=== PATIENT | female | born 1975 | race Caucasian/White ===

== ENCOUNTER 2016-12-11 17:39 | Emergency (ER) | payer OTHER ==
[~2016-12-11] VITALS: Ht 160 cm; Wt 56.7 kg
--- NOTE | 2016-12-11 18:23 | Emergency Room Report ---
History of Present Illness General Chief Complaint: Complications Present Illness HPI 41 YO Female presents to the ED C/O moderate vaginal bleeding with cramping since this am. pt. states she is approximately 12 weeks and when she had routine US Performed on Monday she was told there is nonviable fetus and to anticipate miscarriage by her nurse mixed crop farmer. Patient states she is not currently have an LICENSING WORKER and she had no symptoms until today when she had sudden onset cramping and moderate vaginal bleeding dark red blood with the passage of clots. pt reports current pain is 3/10 in severity and described as uterine cramping. Patient's nurse mixed crop farmer told patient that she should be evaluated by emergency department for moderate amount of blood loss patient reports intermittent dizziness. Patient is with one prior miscarriage and one prior . She states she is currently breast-feeding. Patient denies fevers or chills. She denies trauma. pt. reports uterine tenderness. Denies CP, Palpitations, LOC, AMS, dizziness, Changes in Vision, Sensation, paresthesias, or a sudden severe headache. Allergies: Coded Allergies: ERYTHROMYCIN BASE (Verified Allergy, Unknown, 12/11/16) TETRACYCLINE (Verified Allergy, Unknown, 12/11/16) Patient History Past Medical History: see triage record Past Surgical History: none Pertinent Family History: none Last Menstrual Period: 3-21 Now: Yes - 12 weeks : 4 Para: 1 Reviewed Nursing Documentation: PMH: Agreed, PSxH: Agreed Review of Systems All Other Systems: negative except mentioned in HPI Physical Exam Vital Signs Date Time Temp Pulse Resp B/P Pulse Ox O2 Delivery O2 Flow Rate FiO2 12/11/16 17:29 98.1 88 16 137/72 98 Room Air Sp02 EP Interpretation: reviewed, normal General Appearance: no apparent distress, alert, GCS 15, non-toxic Head: normocephalic, atraumatic Eyes: bilateral eye PERRL, bilateral eye normal inspection ENT: hearing grossly normal, normal pharynx, no angioedema, normal voice Neck: full range of motion, supple/symm/no masses Respiratory: chest non-tender, lungs clear, normal breath sounds, speaking full sentences Cardiovascular #1: regular rate, rhythm, no edema Gastrointestinal: normal bowel sounds, soft, no guarding, no rebound, other - lower abdominal TTP to deep palpation uterine/bladder area, otherwise unremarkable no avidence of acute abdomen Rectal: deferred Genitourinary: normal inspection, no CVA tenderness, ext genitalia/vag normal, os closed, other - moderate bright red blood in the vaginal canal, no clots, os is closed. Musculoskeletal: back normal, gait/station normal, normal range of motion, non- tender Neurologic: alert, oriented x3, responsive, motor strength/tone normal, sensory intact, speech normal Psychiatric: judgement/insight normal, memory normal, mood/affect normal Skin: normal color, no rash, warm/dry, well hydrated Lymphatic: no adenopathy Medical Decision Making PA Attestation Dr. Young is my supervising Physician whom patient management has been discussed with. Diagnostic Impression: Primary Impression: Incomplete miscarriage ER Course 41 YO Female presents to the ED C/O moderate vaginal bleeding with cramping since this am. pt. states she is approximately 12 weeks and when she had routine US Performed on Monday she was told there is nonviable fetus and to anticipate miscarriage by her nurse mixed crop farmer. Patient states she is not currently have an LICENSING WORKER and she had no symptoms until today when she had sudden onset cramping and moderate vaginal bleeding dark red blood with the passage of clots. pt reports current pain is 3/10 in severity and described as uterine cramping. Patient's nurse mixed crop farmer told patient that she should be evaluated by emergency department for moderate amount of blood loss patient reports intermittent dizziness. Patient is with one prior miscarriage and one prior . She states she is currently breast-feeding. Patient denies fevers or chills. She denies trauma. pt. reports uterine tenderness. Ddx considered but are not limited to: Fibroid, ectopic , Fibroid, Spontaneous , incomplete miscarriage. Vital signs: are WNL, pt. is afebrile, non hypotensive, non-tachycardic. Pelvic Exam: bright red blood noted, os is closed no visible clots. H&PE are most consistent with: incomplete miscarriage ORDERS: -CBC: H&H WNL 13.1/38%, WBC's are mildly elevated at 13.1 but WNL for . -Urine hcg- Positive -serum Hcg Quant: 1495 - Blood/RH type and screen- see attached labs -Pelvic US complete- retained POC and uterine fibroid. ED INTERVENTIONS: -1 Liter NS Bolus -500mg Keflex PO OBGYN CONSULT: Dr. Estrada: spoke with on-call OBGYN who agreed to see the pt. in [facility], instructed me to rx Methergine 0.2mg PO Q6Hr # 6 in addition to Doxycycline BID x 7 days --- Pt. is currently Breast feeding Dr. Young suggested doxycycline be switched to Keflex. - Pt. states she does not want to stop Breast feeding, d/w pt. that I will provide her with rx for Methergine in case she changes her mind. instructed pt. to follow up tomorrow with Dr. Estrada's [place] office. and to take antibiotics in the meantime. DISCHARGE: At this time pt. is stable for d/c to home with close outpatient follow up with OBGYN. Will provide printed patient care instructions, and any necessary prescriptions. Care plan and follow up instructions have been discussed with the patient prior to discharge. Labs Test 12/11/16 18:20 12/11/16 18:26 White Blood Count 13.1 K/UL (4.8-10.8) Red Blood Count 4.26 M/UL (4.20-5.40) Hemoglobin 13.1 G/DL (12.0-16.0) Hematocrit 38.1 % (37.0-47.0) Mean Corpuscular Volume 89 FL (80-99) Mean Corpuscular Hemoglobin 30.6 PG (27.0-31.0) Mean Corpuscular Hemoglobin Concent 34.2 G/DL (32.0-36.0) Red Cell Distribution Width 11.2 % (11.6-14.8) Platelet Count 224 K/UL (150-450) Mean Platelet Volume 5.9 FL (6.5-10.1) Neutrophils (%) (Auto) 74.2 % (45.0-75.0) Lymphocytes (%) (Auto) 16.2 % (20.0-45.0) Monocytes (%) (Auto) 7.7 % (1.0-10.0) Eosinophils (%) (Auto) 1.2 % (0.0-3.0) Basophils (%) (Auto) 0.7 % (0.0-2.0) Human Chorionic Gonadotropin, Quant 1495 mIU/mL Urine HCG, Qualitative Positive Last Vital Signs Date Time Temp Pulse Resp B/P Pulse Ox O2 Delivery O2 Flow Rate FiO2 12/11/16 17:29 98.1 88 16 137/72 98 Room Air Disposition: HOME, SELF-CARE Condition: Stable Physician Consult: Dr. Natalie SANTANA Scripts Methylergonovine Maleate (METHYLERGONOVINE MALEATE) 0.2 Mg Tablet 0.2 MG ORAL Q6HR, #6 TAB Prov: Annie Bobo 12/11/16 Cephalexin* (KEFLEX*) 500 Mg Capsule 500 MG ORAL EVERY 12 HOURS for 7 Days, #14 CAP 0 Refills Prov: Annie Bobo 12/11/16 Referrals: MORENO ESTRADA Patient Instructions: Incomplete Miscarriage Additional Instructions: Take medications as directed. Do not drink breast feed while taking Methergine and for 12 hours after last dose. Follow up with Dr. Natalie SANTANA at the [facility] Return sooner to ED if new symptoms occur, or current symptoms become worse. - Please note that this Emergency Department Report was dictated using [employer]joinery setter out technology software, occasionally this can lead to erroneous entry secondary to interpretation by the dictation equipment. Annie Bobo Dec 11, 2016 18:23
[2016-12-11 18:50] LABS: BASOPHILS % (AUTO) 0.7 % (0.0-2.0); EOSINOPHILS % (AUTO) 1.2 % (0.0-3.0); LYMPHOCYTES % (AUTO) 16.2 % (20.0-45.0); MEAN CORPUSCULAR HEMOGLOBIN 30.6 PG (27.0-31.0); MEAN CORPUSCULAR HGB CONC 34.2 G/DL (32.0-36.0); MEAN CORPUSCULAR VOLUME 89 FL (80-99); MEAN PLATELET VOLUME 5.9 FL (6.5-10.1); MONOCYTES % (AUTO) 7.7 % (1.0-10.0); NEUTROPHILS % (AUTO) 74.2 % (45.0-75.0); PLATELET COUNT 224 K/UL (150-450); RED BLOOD COUNT 4.26 M/UL (4.20-5.40); RED CELL DISTRIBUTION WIDTH 11.2 % (11.6-14.8); WHITE BLOOD COUNT 13.1 K/UL (4.8-10.8)
[2016-12-11] MEDS ORDERED: CEPHALEXIN500 MG ORAL (20:42)
[2016-12-11] MEDS ORDERED: METHYLERGONOVI0.2 MG ORAL (20:42)
[2016-12-11] MEDS ORDERED: Cephalexin 500mg cap ORAL ONE (21:00)
[2016-12-11 21:22] VITALS: BP 104/68
--- NOTE | 2016-12-12 12:25 | Diagnostic Imaging Report ---
Indications: Patient states positive test November 24, now presents with vaginal bleeding, LMP 09/13/16 Technique: Transabdominal and transvaginal real-time grayscale and duplex Doppler imaging of the pelvis was performed. Findings: Comparison: None Uterus measures 12.4 x 9 x 8.6cm. It demonstrates a 3.3 cm solid heterogeneous mass in its anterior myometrium, somewhat hypervascular on color Doppler imaging.. The endometrial complex measures approximately 18 mm in diameter. It contains an irregular saclike structure with internal echogenicity, possible small yolk sac. No discernible pole or cardiac activity.Endocervical canal is dilated and filled with heterogeneous material. No Free fluid is present in the cul-de-sac. Right ovary measures 3.5 x 3.4 x 1.5 cm. It is unremarkable in appearance. Duplex Doppler imaging demonstrates normal blood flow. No extra-ovarian abnormality is seen. Left ovary measures 3.4 x 3.2 x 1.9 cm. It is unremarkable in appearance. Duplex Doppler imaging demonstrates normal blood flow. No extra-ovarian abnormality is seen. IMPRESSION: Findings compatible with nonviable intrauterine with retained products of conception Uterine fibroid Adnexa unremarkable
== END 2016-12-11 21:33 | disposition home or self-care (01) ==
LOC: EDBD 17:39 → EMR 18:47
DX: O03.4 Incomplete spontaneous abortion without complication (principal); O34.11 Maternal care for benign tumor of corpus uteri, first trimester; D25.9 Leiomyoma of uterus, unspecified; Z3A.12 12 weeks gestation of pregnancy; Z88.1 Allergy status to other antibiotic agents
CPT/HCPCS: 36415; 76830; 76856; 81025; 84702; 85025; 86850; 86900; 86901; 96360

== ENCOUNTER 2018-05-07 21:55 | Emergency (ER) | payer OTHER ==
[~2018-05-07] VITALS: Ht 160 cm; Wt 59.0 kg
[~2018-05-07 21:55] MED LIST: CEPHALEXIN500 MG ORAL; METHYLERGONOVI0.2 MG ORAL
--- NOTE | 2018-05-07 22:28 | Emergency Room Report ---
History of Present Illness General Chief Complaint: Abdominal Pain Source: Patient Present Illness HPI Patient presents with complaints of vomiting and diarrhea She reports that she just returned from [place] yesterday and this morning she started with her symptoms diffuse abdominal cramping denies any blood in the vomit or diarrhea denies any chest pain or shortness of breath Patient reports that her 2-year-old child had similar symptoms but she felt that that was from swallowing pool water Denies any rash denies any fevers denies any lower abdominal pain Allergies: Coded Allergies: ERYTHROMYCIN BASE (Verified Allergy, Unknown, 05/07/18) TETRACYCLINE (Verified Allergy, Unknown, 05/07/18) Patient History Past Medical History: see triage record Pertinent Family History: none Last Menstrual Period: NOW Reviewed Nursing Documentation: PMH: Agreed; PSxH: Agreed Nursing Documentation-PMH Past Medical History: No Stated History Review of Systems All Other Systems: negative except mentioned in HPI Physical Exam Vital Signs Date Time Temp Pulse Resp B/P (MAP) Pulse Ox O2 Delivery O2 Flow Rate FiO2 05/07/18 21:59 97.5 86 16 104/62 98 Room Air Sp02 EP Interpretation: reviewed, normal General Appearance: well appearing, no apparent distress Head: normocephalic, atraumatic Eyes: bilateral eye PERRL, bilateral eye EOMI ENT: hearing grossly normal, normal pharynx, TMs + canals normal, uvula midline Neck: full range of motion, supple, no meningismus, no bony tend Respiratory: lungs clear, normal breath sounds, no rhonchi, no respiratory distress, no retraction, no accessory muscle use Cardiovascular #1: normal peripheral pulses, regular rate, rhythm, no edema, no gallop, no JVD, no murmur Gastrointestinal: normal bowel sounds, non tender, soft, no mass, no organomegaly, non-distended, no guarding, no hernia, no pulsatile mass, no rebound Genitourinary: no CVA tenderness Musculoskeletal: normal inspection Neurologic: oriented x3, responsive, buckle frame shaper III-XII nml as tested, motor strength/ tone normal, sensory intact Psychiatric: mood/affect normal Skin: normal color, no rash, warm/dry, palpation normal Lymphatic: normal inspection, no adenopathy Medical Decision Making Diagnostic Impression: Primary Impression: Vomiting Additional Impressions: Diarrhea Colitis ER Course Given the patient's history and exam and presentation multiple differentials are considered patient is provided IV hydration and antinausea Patient's blood work reveals elevated white blood cell count This raises some concern of possible infectious pathology such as appendicitis however patient continues to have lower abdominal exam that is benign and without any pain Patient was provided with Cipro There is a consideration of gastro-enteral pathology given the vomiting and diarrhea and the recent travel And patient will have initial conservative outpatient trial Labs Test 05/07/18 22:05 05/07/18 22:40 Urine HCG, Qualitative Negative (NEGATIVE) White Blood Count 15.7 K/UL (4.8-10.8) Red Blood Count 5.46 M/UL (4.20-5.40) Hemoglobin 17.2 G/DL (12.0-16.0) Hematocrit 48.8 % (37.0-47.0) Mean Corpuscular Volume 89 FL (80-99) Mean Corpuscular Hemoglobin 31.4 PG (27.0-31.0) Mean Corpuscular Hemoglobin Concent 35.1 G/DL (32.0-36.0) Red Cell Distribution Width 10.8 % (11.6-14.8) Platelet Count 315 K/UL (150-450) Mean Platelet Volume 5.5 FL (6.5-10.1) Neutrophils (%) (Auto) % (45.0-75.0) Lymphocytes (%) (Auto) % (20.0-45.0) Monocytes (%) (Auto) % (1.0-10.0) Eosinophils (%) (Auto) % (0.0-3.0) Basophils (%) (Auto) % (0.0-2.0) Differential Total Cells Counted 100 Neutrophils % (Manual) 87 % (45-75) Lymphocytes % (Manual) 7 % (20-45) Monocytes % (Manual) 6 % (1-10) Eosinophils % (Manual) 0 % (0-3) Basophils % (Manual) 0 % (0-2) Band Neutrophils 0 % (0-8) Platelet Estimate Adequate Platelet Morphology Normal Red Blood Cell Morphology Normal Sodium Level 141 MMOL/L (136-145) Potassium Level 3.5 MMOL/L (3.5-5.1) Chloride Level 105 MMOL/L (98-107) Carbon Dioxide Level 24 MMOL/L (21-32) Anion Gap 12 mmol/L (5-15) Blood Urea Nitrogen 13 mg/dL (7-18) Creatinine 0.8 MG/DL (0.55-1.30) Estimat Glomerular Filtration Rate > 60 mL/min (>60) Glucose Level 135 MG/DL (74-106) Calcium Level 9.2 MG/DL (8.5-10.1) Total Bilirubin 1.1 MG/DL (0.2-1.0) Direct Bilirubin 0.2 MG/DL (0.0-0.3) Aspartate Amino Transf (AST/SGOT) 17 U/L (15-37) Alanine Aminotransferase (ALT/SGPT) 12 U/L (12-78) Alkaline Phosphatase 61 U/L (46-116) Total Protein 8.8 G/DL (6.4-8.2) Albumin 4.3 G/DL (3.4-5.0) Globulin 4.5 g/dL Albumin/Globulin Ratio 1.0 (1.0-2.7) Lipase 145 U/L (73-393) Last Vital Signs Date Time Temp Pulse Resp B/P (MAP) Pulse Ox O2 Delivery O2 Flow Rate FiO2 05/07/18 21:59 97.5 86 16 104/62 98 Room Air Status: improved Disposition: HOME, SELF-CARE Condition: Improved Scripts Ondansetron (Zofran) 4 Mg Tablet 4 MG ORAL Q8HR PRN for Nausea & Vomiting, #12 TAB Prov: Jozef Garcia DO 05/08/18 Ciprofloxacin Hcl* (CIPROFLOXACIN HCL*) 500 Mg Tablet 500 MG ORAL Q12H, #10 TAB 0 Refills Prov: Jozef Garcia DO 05/08/18 Additional Instructions: Patient is provided with the discharge instructions notified to follow up with primary doctor in the next 2-3 days otherwise return to the er with any worsening symptoms. Please note that this report is being documented using [employer] technology. This can lead to erroneous entry secondary to incorrect interpretation by the dictating instrument. Jozef Garcia DO May 07, 2018 22:28
[2018-05-07] MEDS: DiphenhydrAMINE 50mg/ml Inj IVP ONE (22:47)
[2018-05-07] MEDS: LORazepam Inj 2mg/ml 1ml IV ONE (22:48)
[2018-05-07 22:56] LABS: HEMATOCRIT 48.8 % (37.0-47.0); HEMOGLOBIN 17.2 G/DL (12.0-16.0); MEAN CORPUSCULAR VOLUME 89 FL (80-99); PLATELET COUNT 315 K/UL (150-450); RED BLOOD COUNT 5.46 M/UL (4.20-5.40); RED CELL DISTRIBUTION WIDTH 10.8 % (11.6-14.8); WHITE BLOOD COUNT 15.7 K/UL (4.8-10.8)
[2018-05-07 23:09] LABS: ANION GAP 12 mmol/L (5-15); BLOOD UREA NITROGEN 13 mg/dL (7-18); CALCIUM 9.2 MG/DL (8.5-10.1); CARBON DIOXIDE 24 MMOL/L (21-32); CHLORIDE 105 MMOL/L (98-107); CREATININE 0.8 MG/DL (0.55-1.30); POTASSIUM 3.5 MMOL/L (3.5-5.1); SODIUM 141 MMOL/L (136-145)
[2018-05-07 23:19] LABS: ALANINE AMINOTRANSFERASE 12 U/L (12-78); ALBUMIN 4.3 G/DL (3.4-5.0); ALKALINE PHOSPHATASE 61 U/L (46-116); ASPARTATE AMINO TRANSFERASE 17 U/L (15-37); BILIRUBIN,TOTAL 1.1 MG/DL (0.2-1.0)
[2018-05-07 23:24] LABS: BILIRUBIN,DIRECT 0.2 MG/DL (0.0-0.3)
[2018-05-08 01:36] VITALS: BP 104/62
[2018-05-08] MEDS ORDERED: ZOFRAN4 M1 ORAL (01:50)
[2018-05-08] MEDS ORDERED: CIPROFLOXACIN500 M2 ORAL (01:50)
[2018-05-08 02:11] VITALS: BP 115/75
== END 2018-05-08 01:56 | disposition home or self-care (01) ==
LOC: EMR 22:45
DX: K52.9 Noninfective gastroenteritis and colitis, unspecified (principal); Z88.1 Allergy status to other antibiotic agents
CPT/HCPCS: 36415; 80053; 81025; 82248; 83690; 85007; 85025; 96361; 96365; 96374; 96375; 99284; J2405